=== PATIENT | male | born 1995 | race Caucasian/White ===

== ENCOUNTER 2017-06-16 10:08 | Emergency (ER) | payer BC ==
[~2017-06-16] VITALS: Ht 180.3 cm; Wt 82.0 kg
[2017-06-16 10:10] VITALS: BP 135/83
[2017-06-16] MEDS ORDERED: DEXAMETHASONE 4 MG/ML, 1ML ONE (10:58)
[2017-06-16] MEDS ORDERED: DEXAMETHASONE 4 MG/ML, 1ML PO ONE (11:00)
== END 2017-06-16 12:03 | disposition home or self-care (01) ==
LOC: ED 11:01
DX: K12.2 Cellulitis and abscess of mouth (principal)
CPT/HCPCS: 99282; J1100